=== PATIENT | female | born 1940 | race Caucasian/White ===

== ENCOUNTER 2019-04-12 21:03 | Inpatient (IN) | payer MEDICARE, OTHER ==
[~2019-04-12] VITALS: Ht 160 cm; Wt 63.0 kg
[2019-04-13] VITALS (81 sets, daily range): BP systolic 54–179; BP diastolic 17–89
--- NOTE | 2019-04-13 00:35 | NUR ---
RECEIVED PT ORALLY INTUBATED - 7.0 ETT SIZE APPROXIMATELY 23CM AT THE LIP. PLACED ON MOY VENT WITH SETTINGS REPORTED BY TRANSPORT RT - AC 16, VT 450, FIO2 80%. TOLERATED SETTINGS WELL. ORAL CARE DONE. HME CHANGED. SPUTUM SAMPLE DONE. SUCTIONED MODERATE AMOUNT OF THICK, GREEN SECRETIONS. AMBU BAG IS AT BEDSIDE. VENT ALARMS SET, ARE ON AND AUDIBLE. NO S/S OF RESPIRATORY DISTRESS NOTED. WILL CONTINUE TO MONITOR.
--- NOTE | 2019-04-13 01:00 | NUR ---
Received pt orally intubated, vent settings AC 16, TV 450, FIO2 80%. Pt eyes open spontaneously, withdraws to painful stimuli, unable to follow commands. Upper and lower extremities mild weakness. F/C in place. BM noted to be foul - smelling, green to yellow color and moderate amount. Full assessment/admission done. Skin check completed. No belongings listed. Pt turned and repositioned. Safety precautions initiated. Continue plan of care.
[2019-04-13] MEDS ORDERED: ACETAMINOPHEN 650 MG SUPP.RECT RC PRN (02:00)
[2019-04-13] MEDS ORDERED: MORPHINE SULFATE 2 MG/1 ML DISP.SYRIN IV ONE (02:00)
[2019-04-13] MEDS ORDERED: Z GUARD REMEDY PASTE 57 GM TUBE TOP PRN (02:15)
[2019-04-13] MEDS ORDERED: LORAZEPAM 2 MG/1 ML VIAL IV PRN (02:15)
[2019-04-13] MEDS ORDERED: IV NORMAL SALINE 500 ML IV ONE ×3 (03:00→08:45)
--- NOTE | 2019-04-13 03:00 | NUR ---
Paged EPIC education manager MD for low BP pressure of 79/55. ZAY AQUINO notified. See order history. Will continue plan of care. No acute distress noted.
[2019-04-13 05:14] LABS: BASOPHILS # (AUTO) 0.3 K/uL (0.0-8.0); BASOPHILS % (AUTO) 0.5 % (0.0-2.0); EOSINOPHILS # (AUTO) 0.4 K/uL (0.0-0.7); EOSINOPHILS % (AUTO) 0.7 % (0.0-7.0); HEMOGLOBIN 12.5 g/dL (10.9-14.3); LYMPHOCYTES # (AUTO) 1.6 K/uL (20.0-40.0); MEAN CORPUSCULAR HEMOGLOBIN 26.2 uug (24.7-32.8); MEAN CORPUSCULAR HGB CONC 31 g/dL (32.3-35.6); MEAN CORPUSCULAR VOLUME 83.7 fL (75.5-95.3); MONOCYTES % (AUTO) 3.9 % (0.0-11.0); NEUTROPHILS # (AUTO) 47.9 K/uL (1.8-8.9); NEUTROPHILS % (AUTO) 91.9 % (38.5-71.5); PLATELET COUNT (AUTO) 377 K/uL (179-408); RED BLOOD CELL COUNT(AUTO) 4.78 MIL/uL (3.63-4.92)
[2019-04-13 05:25] LABS: ALANINE AMINOTRANSFERASE 11 U/L (14-59); ALKALINE PHOSPHATASE 86 U/L (50-136); ASPARTATE AMINOTRANSFERASE 15 U/L (15-37); BILIRUBIN,TOTAL 0.7 mg/dL (0.2-1.0); CARBON DIOXIDE 17 mmol/L (21-32); CHLORIDE 107 mmol/L (98-107); CREATININE 1.8 mg/dL (0.6-1.3); GLUCOSE 114 mg/dL (74-106); PHOSPHOROUS 4.2 mg/dL (2.5-4.9); POTASSIUM 3.6 mmol/L (3.5-5.1); TOTAL PROTEIN, SERUM 4.4 g/dL (6.4-8.2); UREA NITROGEN, BLOOD 42 mg/dL (7-18)
[2019-04-13] MEDS ORDERED: NOREPINEPHRINE BITARTRATE 4 MG/4 ML VIAL IV ONE (05:27)
[2019-04-13 05:28] LABS: THYROID STIMULATING HORMONE 1.243 mIU/mL (0.358-3.740)
[2019-04-13 05:31] LABS: WHITE BLOOD COUNT (AUTO) 52.1 K/uL (3.8-11.8)
[2019-04-13] MEDS: NOREPINEPHRINE BITARTRATE 8 MG in IV DEXTROSE 5% 500 ML IV PRN (05:50)
[2019-04-13 06:14] LABS: BAND % (MANUAL) 3 % (0-10); LYMPHOCYTES % (MANUAL) 4 % (20-40); MONOCYTES % (MANUAL) 8 % (2-10); NEUTROPHILS % (MANUAL) 85 % (42-75)
--- NOTE | 2019-04-13 08:00 | NUR ---
PATIENT WAS SEEN BY DOCTOR JOSY. ORDERED BOLUS. SEE ORDERS FOR FURTHER MANAGEMENT.
[2019-04-13] MEDS ORDERED: PIPERACILLIN/TAZO 2.25 G in IV DEXTROSE 5% 50 ML IV SCH ×2 (08:15→12:00)
[2019-04-13] MEDS ORDERED: IV NS 1000 ML 1,000 ML IV PRN (08:45)
[2019-04-13] MEDS ORDERED: IV NS 1000 ML 1,000 ML IV ONE (09:00)
--- NOTE | 2019-04-13 09:00 | NUR ---
RT PT FIO2 WAS CHANGED TO 70% RN AWARE NO DISTRESS NOTED AT THIS TIME.
--- NOTE | 2019-04-13 09:01 | NUR ---
Clinical pharmacy note-Vancomycin dosing per pharmacy Subjective: To start Vancomycin dosing on this patient for Documented infection(no ER note/md note available for now). Patient is on Zosyn also. Objective: BUN 42 Scr 1.8 WBC 52.1 Temp 97.7 Ht 160.02cm Wt 62.96kg Assessment/Plan: Since renal function is unstable, will start dosing by level for now. Will give Vancomycin 1gram x1 today(scheduled at 1000) and draw random tomorrow am for further dosing. Will follow daily.
[2019-04-13] MEDS: IV D5/ 0.9% NACL 1,000 ML IV PRN (09:10)
[2019-04-13] MEDS: Z GUARD REMEDY PASTE 57 GM TUBE TOP SCH ×2 (09:12→20:22)
[2019-04-13] MEDS: PANTOPRAZOLE SODIUM 40 MG VIAL IV SCH (09:13)
[2019-04-13] MEDS ORDERED: VANCOMYCIN IV 1,000 MG in IV DEXTROSE 5% 250 ML IV ONE (10:00)
--- NOTE | 2019-04-13 10:09 | NUR ---
DOCTOR KING IN THE UNIT FOR NEW CONSULTATION.
[2019-04-13 10:26] LABS: CHOLESTEROL 76 mg/dL (<200); HDL CHOLESTEROL 12 mg/dL (40-60); TRIGLYCERIDES 122 MG/DL (30-150)
--- NOTE | 2019-04-13 10:44 | NUR ---
doctor dayne ordered consult for ID. informed SOCIAL SERVICE DIRECTOR to see patient. She is in the unit
--- NOTE | 2019-04-13 11:15 | NUR ---
RT PER MD ORDER PT PEEP +5 WAS ADDED TO PT VENT SETTINGS. MD AWARE OF PT B/P WILL CONTINUE TO MONITOR PT.
--- NOTE | 2019-04-13 11:16 | NUR ---
peep of 5 added per doctor shirley O2 to titrate to keep sats above 94% RT notified
[2019-04-13] MEDS: PROPOFOL 100 ML IV PRN (11:36)
[2019-04-13] MEDS ORDERED: CEFEPIME HCL 1 G in IV DEXTROSE 5% 50 ML IV SCH (12:45)
[2019-04-13] MEDS: VANCOMYCIN FOR PO/GT/NG USE GT SCH ×2 (13:01→18:10)
[2019-04-13] MEDS: CEFEPIME HCL 1 G in IV DEXTROSE 5% 50 ML IV SCH (13:02)
[2019-04-13] MEDS: HYDROCORTISONE SOD SUCCINATE 100 MG/2 ML VIAL IV SCH ×2 (13:03→18:09)
[2019-04-13] MEDS ORDERED: PHENYLEPHRINE IV 20 MG in IV DEXTROSE 5% 250 ML IV PRN (14:15)
--- NOTE | 2019-04-13 14:20 | NUR ---
DR. ZEPEDA ORDERED NEOSYNEPHRINE AND TITRATE OFF LEVOPHED DUE TO ELEVATED HEART RATE.
--- NOTE | 2019-04-13 14:49 | NUR ---
PATIENT IS POSITIVE FOR CDIFF
[2019-04-13] MEDS: METRONIDAZOLE 500 MG/NS 100ML 500 MG in PREMIXED 1 EACH IV SCH ×2 (14:57→21:48)
--- NOTE | 2019-04-13 15:14 | NUR ---
WOUND CARE CONSULT: PT PRESENTS WITH SACRAL SCAR, GENERALIZED EDEMA, LEFT ARM SKIN TEAR, DISCOLORATIONS AND DUSKY COLOR TO FEET AND HEELS, PRESENT ON ADMISSION. RECOMMENDATIONS MADE FOR SKIN PROTECTION AND WOUND CARE, DISCUSSED WITH NURSING STAFF. WILL SEE PRN. FALK IN AGREEMENT WITH PLAN OF CARE. PT ON FIRST STEP [facility]. Addendum: 04/13/19 at 1515 by JOSE WATTS RN Amended: Links added. Addendum: 04/13/19 at 1516 by JOSE WATTS RN PT HAS RECTAL TUBE IN PLACE. SOME REDNESS NOTED TO LOWER BUTTOCKS WITH RASH. RECOMMENDATIONS MADE FOR SKIN CARE. DISCUSSED WITH NURSING STAFF.
[2019-04-13] MEDS ORDERED: BISA10SU61 RC (16:38)
[2019-04-13] MEDS ORDERED: DOCU100C36 GT (16:38)
[2019-04-13] MEDS ORDERED: MULT-213 PO (16:38)
[2019-04-13] MEDS ORDERED: METO25TA6 PO (16:38)
[2019-04-13] MEDS ORDERED: ACET-2154 PO (16:38)
[2019-04-13] MEDS ORDERED: FERROUS SULFATE GT (16:38)
[2019-04-13] MEDS ORDERED: ZINC1CAP2 GT (16:40)
[2019-04-13] MEDS ORDERED: NA P133E RC (16:40)
[2019-04-13] MEDS ORDERED: MAGN400O6 GT (16:41)
[2019-04-13] MEDS ORDERED: LACT-96 GT (16:44)
[2019-04-13] MEDS: CLOTRIMAZOLE 1% CREAM 30 GM TUBE TOP SCH (18:09)
--- NOTE | 2019-04-13 18:09 | NUR ---
RT PT REMAINS ON VENT NO CHANGES NO WEANING ORDERS AT THIS TIME. PT VENT SETTINGS ARE AC 16 VT450 PEEP+5 FIO2 70% PT TOLERATED VENT WELL ALARMS ON AND AUDIBLE WILL CONTINUE TO MONITOR PT.
[2019-04-13] MEDS: PHENYLEPHRINE IV 40 MG in IV DEXTROSE 5% 250 ML IV PRN ×2 (18:24→21:52)
--- NOTE | 2019-04-13 20:15 | NUR ---
round made patient in bed ,orally intubated , tolerated vent setting saturation 95% rr 20, suction patient via mouth with thin to thick secretions oral care done,hob up ,turned and reposition patient . continue to monitor bp and continue with norsynephrine drip to keep sbp >90 mm/hg v/s done q15 minutes .flexiseal in placed with liquid greenish stool , f/c to bsd with yellowish urine cloudy and with sediments .contact isolation precaution observed .
--- NOTE | 2019-04-13 22:00 | NUR ---
turned and reposition patient elevated upper and lower extremities with pillows .suctiion via ett and via mouth .hob up . npo peg clamp only for medication .
--- NOTE | 2019-04-13 23:30 | NUR ---
turned and reposition patient / continue to monitor v/s q15 and continue to monitor levels of sedation . open eyes spontaneously but doesn't not follow commands increase propofol c/o tachypneic with continue to monitor rr and bp .
--- NOTE | 2019-04-13 23:30 | NUR ---
collected urine for osmolality and random sodium etc.
[2019-04-14] VITALS (93 sets, daily range): BP systolic 0–117; BP diastolic 0–81
--- NOTE | 2019-04-14 | NUR ---
continue to monitor i and os urine remains low as per day RN ,MD: domingo aware and renal already consulted .
[2019-04-14 00:04] LABS: *BILIRUBIN,URIN 1+ (NEGATIVE); *BLOOD, URINE 3+ (NEGATIVE); *CLARITY,URINE TURBID (CLEAR); *COLOR,URINE AMBER (YELLOW); *KETONES,URINE TRACE (NEGATIVE); *UROBILINOGEN,URINE 0.2 E.U./dl (NORMAL); LEUKOCYTE ESTERASE ,URINE 1+ (NEGATIVE); NITRITE, URINE NEGATIVE (NEGATIVE); UGLUCOSE NEGATIVE (NEGATIVE)
[2019-04-14] MEDS: HYDROCORTISONE SOD SUCCINATE 100 MG/2 ML VIAL IV SCH ×5 (00:07→23:44)
[2019-04-14] MEDS: VANCOMYCIN FOR PO/GT/NG USE GT SCH ×5 (00:07→23:44)
[2019-04-14 00:47] LABS: *CREATININE,URINE 111.6 mg/dL (30-125); BACTERIA,URINE NONE SEEN /HPF (NONE SEEN); RBC,URINE 20-50 /HPF (0-3); SQUAMOUS EPITHELIAL CELL,UR MODERATE /HPF (NONE SEEN)
[2019-04-14 00:48] LABS: RED BLOOD CELL CASTS,URINE 0-3 /LPF (NONE SEEN); URIC ACID CRYSTALS,URINE MODERATE /HPF (NONE SEEN); URINE AMORPHOUS URATE MANY /HPF; WAXY CASTS,URINE 0-3 /LPF (NONE SEEN)
--- NOTE | 2019-04-14 01:10 | NUR ---
given prn morphine patient is tachypneic RR 35 breathing over the vent setting on ac 16,facial grimace noted upon touching and repositioning continue to increase neosynephrine to keep sbp >90 mm/hg,.
--- NOTE | 2019-04-14 01:15 | NUR ---
given morphine patient tachypneic rr 30 and continue to monitor s/s/ pain and vent settings , will titrate neosynephrine drip ifs needed .
[2019-04-14] MEDS: PHENYLEPHRINE IV 40 MG in IV DEXTROSE 5% 250 ML IV PRN ×3 (01:18→08:20)
[2019-04-14] MEDS: MORPHINE SULFATE 2 MG/1 ML DISP.SYRIN IV PRN ×3 (01:22→19:45)
[2019-04-14] MEDS: PROPOFOL 100 ML IV PRN (01:36)
[2019-04-14] MEDS: IV D5/ 0.9% NACL 1,000 ML IV PRN ×2 (01:37→15:02)
[2019-04-14 05:42] LABS: BASOPHILS # (AUTO) 0.2 K/uL (0.0-8.0); EOSINOPHILS # (AUTO) 0.1 K/uL (0.0-0.7); EOSINOPHILS % (AUTO) 0.1 % (0.0-7.0); NEUTROPHILS % (AUTO) 96.3 % (38.5-71.5)
--- NOTE | 2019-04-14 05:45 | NUR ---
PT ON CONT MOY VENT WITH 7.0 ET/TUBE IN PLACE AND SECURED WITH ANCHOR FAST, ROTATE, ORAL CARE DONE, SUCTIONED PALE YELL TINGE SECRETIONS, CHECK CUFF, CHANGE HME; ALL VENT ALARMS GOOD, NO VENT CHANGES MADE, PT WITH SAME CURRENT VENT SETTINGS, PT DOES BREATH RAPID AT TIMES, NO VERY RESPONSIVE, AMBU BAG AT BEDSIDE.Shona CRAWFORDP Addendum: 04/14/19 at 0548 by NEVA MICHAEL RT Amended: Links added.
[2019-04-14 05:48] LABS: BASOPHILS % (AUTO) 0.2 % (0.0-2.0); HEMOGLOBIN 13.7 g/dL (10.9-14.3); LYMPHOCYTES # (AUTO) 1.5 K/uL (20.0-40.0); LYMPHOCYTES % (AUTO) 1.8 % (20.5-51.5); MEAN CORPUSCULAR HEMOGLOBIN 25.9 uug (24.7-32.8); MEAN CORPUSCULAR HGB CONC 31 g/dL (32.3-35.6); MEAN CORPUSCULAR VOLUME 83.5 fL (75.5-95.3); MONOCYTES # (AUTO) 1.3 K/uL (2.0-10.0); MONOCYTES % (AUTO) 1.6 % (0.0-11.0); NEUTROPHILS # (AUTO) 79.9 K/uL (1.8-8.9); PLATELET COUNT (AUTO) 393 K/uL (179-408); RED BLOOD CELL COUNT(AUTO) 5.27 MIL/uL (3.63-4.92)
[2019-04-14 05:51] LABS: ALANINE AMINOTRANSFERASE 15 U/L (14-59); ALKALINE PHOSPHATASE 102 U/L (50-136); ASPARTATE AMINOTRANSFERASE 40 U/L (15-37); BILIRUBIN,TOTAL 0.4 mg/dL (0.2-1.0); CARBON DIOXIDE 14 mmol/L (21-32); CHLORIDE 104 mmol/L (98-107); CREATINE KINASE, TOTAL 115 U/L (26-192); CREATININE 2.6 mg/dL (0.6-1.3); GLUCOSE 202 mg/dL (74-106); PHOSPHOROUS 5.3 mg/dL (2.5-4.9); TOTAL PROTEIN, SERUM 4.5 g/dL (6.4-8.2); UREA NITROGEN, BLOOD 49 mg/dL (7-18); VANCOMYCIN,RANDOM 24.9 ug/mL (18.0-26.0)
[2019-04-14] MEDS: METRONIDAZOLE 500 MG/NS 100ML 500 MG in PREMIXED 1 EACH IV SCH ×3 (06:02→21:30)
[2019-04-14 07:18] LABS: BAND % (MANUAL) 14 % (0-10); LYMPHOCYTES % (MANUAL) 7 % (20-40); MONOCYTES % (MANUAL) 5 % (2-10); NEUTROPHILS % (MANUAL) 74 % (42-75)
--- NOTE | 2019-04-14 07:30 | NUR ---
doctor marco in the unit to round on patient.
[2019-04-14] MEDS: PANTOPRAZOLE SODIUM 40 MG VIAL IV SCH (09:21)
[2019-04-14] MEDS: Z GUARD REMEDY PASTE 57 GM TUBE TOP SCH ×2 (09:22→20:21)
[2019-04-14] MEDS: CLOTRIMAZOLE 1% CREAM 30 GM TUBE TOP SCH ×2 (09:22→17:21)
--- NOTE | 2019-04-14 09:46 | NUR ---
Malena COLLAZO in the unit to see patient.
--- NOTE | 2019-04-14 09:47 | NUR ---
lactic acid reported 5.2 trending as expected.
[2019-04-14] MEDS ORDERED: PHENYLEPHRINE IV 80 MG in IV DEXTROSE 5% 250 ML IV PRN (12:15)
[2019-04-14 12:27] LABS: ABG BASE EXCESS -7.4 mmol/L; ABG HCO3 14.4 mmol/L; ABG PCO2 21.8 mmHg (35.0-45.0); ABG PH 7.439 (7.350-7.450); ABG SITE LEFT RADIAL; ABG TOTAL HEMOGLOBIN 14.4 G/dL (12.0-16.0); COHb 1.5 % (0.5-1.5); MetHb 0.4 % (0.0-1.5); O2Hb 96.1 % (94.0-97.0); VENT MODE VENT - A/C; VT, ABG 450 mL
[2019-04-14 12:31] LABS: ABG BASE EXCESS -12.8 mmol/L; ABG HCO3 10.1 mmol/L; ABG PCO2 18.5 mmHg (35.0-45.0); ABG PH 7.353 (7.350-7.450); ABG PO2 67.3 mmHg (75.0-100.0); ABG SITE LEFT RADIAL; ABG TOTAL HEMOGLOBIN 14.5 G/dL (12.0-16.0); COHb 1.4 % (0.5-1.5); MetHb 0.3 % (0.0-1.5); O2Hb 92.1 % (94.0-97.0); VENT MODE VENT - A/C; VT, ABG 450 mL
[2019-04-14] MEDS: PHENYLEPHRINE IV 80 MG in IV DEXTROSE 5% 250 ML IV PRN ×2 (12:51→21:33)
--- NOTE | 2019-04-14 13:40 | NUR ---
Clinical pharmacy note-Vancomycin dosing per pharmacy Subjective: To continue Vancomycin dosing on this patient for Documented infection(ID note:severe sepsis, possible PNA/UTI). Patient is on Zosyn also. Objective: BUN 49 Scr 2.6 WBC 83 Temp 98.6 Ht 160.02cm Wt 62.96kg Vancomycin random today am:24.9 Assessment/Plan: Since renal function is unstable, will continue dosing by level for now. No dose shall be given today(level 24.9). Ordered another random tomorrow am for further dosing. Will follow the level.
[2019-04-14] MEDS: CEFEPIME HCL 1 G in IV DEXTROSE 5% 50 ML IV SCH (13:49)
[2019-04-14] MEDS: NOREPINEPHRINE BITARTRATE 8 MG in IV DEXTROSE 5% 500 ML IV PRN ×2 (16:15→22:42)
--- NOTE | 2019-04-14 16:15 | NUR ---
SEBASTIEN BUSINESS DEVELOPMENT MANAGER INFORMED ME THAT A MESSAGE WAS LEFT WITH RESIDENTIAL FOR RECORDS AND POLST OF PATIENT. MEDICAL RECORDS IS CLOSED TO OBTAIN RECORDS. AND A MESSAGE WAS LEFT TO CONSERVATOR TO INFORM OF PATIENT STATUS. AWAITING FURTHER INFORMATION
--- NOTE | 2019-04-14 16:30 | NUR ---
DOCTOR NINFA IN THE UNIT TO SEE PATIENT. ORDERED PATIENT TO GO BACK ON LEVOPHED AND TAKE OFF NEOSYNEPHRINE.
--- NOTE | 2019-04-14 16:51 | NUR ---
PATIENT IS DESATING AT THIS TIME 88-90%. AND PLACED ON 100% FIO2. PATIENT CONTINUES TO DESATURATE. BREATHING LABORED STAT ABG OBTAINED.
--- NOTE | 2019-04-14 18:02 | NUR ---
DOCTOR KACEY CALLED BACK ON-CALL FOR DOCTOR DILLAN. INFORMED HIM OF ABG VALUES RECEIVED NO NEW ORDERS.
[2019-04-14] MEDS ORDERED: MORPHINE SULFATE 2 MG/1 ML DISP.SYRIN IV PRN (20:15)
[2019-04-14] MEDS ORDERED: DOPamine IV DRIP 400 MG/250ML 250 ML IV SCH (21:01)
[2019-04-14] MEDS ORDERED: PHENYLEPHRINE 10 MG/1 ML VIAL ONE ×2 (21:18→21:27)
--- NOTE | 2019-04-14 21:27 | NUR ---
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
--- NOTE | 2019-04-14 21:35 | NUR ---
Dr Angel aware max'd on 3 vasopressors. No B/P. No new orders.
[2019-04-14] MEDS: DOPamine IV DRIP 400 MG/250ML 250 ML IV SCH (23:35)
--- NOTE | 2019-04-14 23:59 | NUR ---
PT ON CONT MOY VENT WITH 7.0 ET/TUBE IN PLACE , WITH SAME CURRENT VENT SETTINGS, PT DOES ASSIST AT TIMES, LOEW BP, HARD TO GET READING ON SAT , SUCTIONED LIGHT PALE YELL TINGE SECRETIONS, AGINAL BREATHING, PT ON FO2 100%, AMBU BAG AT BEDSIDE.Shona MICHAEL [employer]ILRO[employer] BAGG[employer]TER Addendum: 04/15/19 at 0001 by NEVA MICHAEL RT Amended: Links added.
[2019-04-15] VITALS (30 sets, daily range): BP systolic 0–52; BP diastolic 0–32
[2019-04-15] MEDS ORDERED: NOREPINEPHRINE BITARTRATE 4 MG/4 ML VIAL IV ONE ×2 (01:57→05:21)
[2019-04-15] MEDS: NOREPINEPHRINE BITARTRATE 8 MG in IV DEXTROSE 5% 500 ML IV PRN (02:03)
[2019-04-15] MEDS ORDERED: PHENYLEPHRINE 10 MG/1 ML VIAL ONE (02:30)
[2019-04-15] MEDS: PHENYLEPHRINE IV 80 MG in IV DEXTROSE 5% 250 ML IV PRN ×3 (02:35→11:19)
[2019-04-15] MEDS ORDERED: DOPamine IV DRIP 400 MG/250ML 250 ML ONE (02:56)
[2019-04-15] MEDS: DOPamine IV DRIP 400 MG/250ML 250 ML IV SCH (03:11)
[2019-04-15] MEDS: IV D5/ 0.9% NACL 1,000 ML IV PRN (05:29)
[2019-04-15 05:33] LABS: BASOPHILS # (AUTO) 0.5 K/uL (0.0-8.0); BASOPHILS % (AUTO) 0.4 % (0.0-2.0); EOSINOPHILS # (AUTO) 0.4 K/uL (0.0-0.7); EOSINOPHILS % (AUTO) 0.3 % (0.0-7.0); MEAN CORPUSCULAR VOLUME 89.7 fL (75.5-95.3); MONOCYTES % (AUTO) 0.3 % (0.0-11.0)
[2019-04-15 05:38] LABS: HEMATOCRIT 45.3 % (31.2-41.9); LYMPHOCYTES # (AUTO) 2.1 K/uL (20.0-40.0); LYMPHOCYTES % (AUTO) 1.6 % (20.5-51.5); MEAN CORPUSCULAR HEMOGLOBIN 25.6 uug (24.7-32.8); MEAN CORPUSCULAR HGB CONC 29 g/dL (32.3-35.6); MONOCYTES # (AUTO) 0.4 K/uL (2.0-10.0); NEUTROPHILS # (AUTO) 126.9 K/uL (1.8-8.9); NEUTROPHILS % (AUTO) 97.4 % (38.5-71.5); PLATELET COUNT (AUTO) 180 K/uL (179-408); RED BLOOD CELL COUNT(AUTO) 5.05 MIL/uL (3.63-4.92)
[2019-04-15 05:43] LABS: ALANINE AMINOTRANSFERASE 21 U/L (14-59); ALKALINE PHOSPHATASE 133 U/L (50-136); ASPARTATE AMINOTRANSFERASE 41 U/L (15-37); BILIRUBIN,TOTAL 0.6 mg/dL (0.2-1.0); CARBON DIOXIDE 11 mmol/L (21-32); CHLORIDE 95 mmol/L (98-107); CREATININE 2.9 mg/dL (0.6-1.3); MAGNESIUM 1.9 mg/dL (1.8-2.4); PHOSPHOROUS 7.5 mg/dL (2.5-4.9); POTASSIUM 4.3 mmol/L (3.5-5.1); TOTAL PROTEIN, SERUM 4.2 g/dL (6.4-8.2); UREA NITROGEN, BLOOD 48 mg/dL (7-18); VANCOMYCIN,RANDOM 15.4 ug/mL (18.0-26.0)
[2019-04-15] MEDS: HYDROCORTISONE SOD SUCCINATE 100 MG/2 ML VIAL IV SCH ×2 (05:43→11:53)
[2019-04-15] MEDS: VANCOMYCIN FOR PO/GT/NG USE GT SCH ×2 (05:43→11:54)
[2019-04-15] MEDS: METRONIDAZOLE 500 MG/NS 100ML 500 MG in PREMIXED 1 EACH IV SCH ×2 (05:43→14:07)
[2019-04-15] MEDS: NOREPINEPHRINE BITARTRATE 16 MG in IV DEXTROSE 5% 500 ML IV PRN ×2 (05:50→07:06)
[2019-04-15 05:56] LABS: GLUCOSE 453 mg/dL (74-106)
[2019-04-15 05:57] LABS: WHITE BLOOD COUNT (AUTO) 130.3 K/uL (3.8-11.8)
--- NOTE | 2019-04-15 06:05 | NUR ---
dr andres was called in and to notify of recent critical lab values , waiting for call back
[2019-04-15 06:27] LABS: BAND % (MANUAL) 32 % (0-10); LYMPHOCYTES % (MANUAL) 2 % (20-40); MONOCYTES % (MANUAL) 1 % (2-10); NEUTROPHILS % (MANUAL) 43 % (42-75)
[2019-04-15 06:28] LABS: METAMYELOCYTES % 13 % (0-1); MYELOCYTES % 9 % (0-0)
[2019-04-15] MEDS ORDERED: INSULIN REGULAR, HUMAN 300 UNIT/3 ML VIAL SQ ONE (06:30)
[2019-04-15] MEDS ORDERED: DOPamine IV DRIP 400 MG/250ML 250 ML IV PRN (06:35)
[2019-04-15] MEDS ORDERED: VANCOMYCIN IV 1,000 MG in IV DEXTROSE 5% 250 ML IV ONE (07:00)
--- NOTE | 2019-04-15 07:30 | NUR ---
Bedside report received from Nahomy [place] as reported SBP reading unable to be obtained since last night at apr 14, 2029. and Attending Selvin Morales aware.
--- NOTE | 2019-04-15 08:00 | NUR ---
Pulmonary services, Dr. Renee in the unit to see and examine patient, full report given, orders to continue care and morphine administration as ordered. Addendum: 04/15/19 at 0911 by MIREYA ECKERT RN informed that no SBP reading obtained since Apr 14 at 2030. also informed that attending is aware.
[2019-04-15] MEDS: Z GUARD REMEDY PASTE 57 GM TUBE TOP SCH (08:18)
[2019-04-15] MEDS: PANTOPRAZOLE SODIUM 40 MG VIAL IV SCH (08:23)
[2019-04-15] MEDS: CLOTRIMAZOLE 1% CREAM 30 GM TUBE TOP SCH (08:48)
--- NOTE | 2019-04-15 09:58 | NUR ---
Clinical pharmacy note-Vancomycin dosing per pharmacy Subjective: To continue Vancomycin dosing on this patient for Documented infection(ID note:severe sepsis, possible PNA/UTI). Objective: BUN 48 Scr 2.9 WBC 130.3 Temp 98.2 Ht 160.02cm Wt 62.96kg Vancomycin random on 04/14 with am labs:24.9 Vancomycin random on 04/15 with am labs:15.4 Assessment/Plan: Since renal function is unstable, will continue dosing by level for now. Since vanco random this am is 15.4 mcg/ml, will give vanco 1gm IVPB x1 today at 0800. Pharmacy shall review the renal function in am & decide when to order next random level for further dosing. Will follow the level.
[2019-04-15] MEDS: DOPamine IV DRIP 400 MG/250ML 250 ML IV PRN ×2 (10:11→13:30)
[2019-04-15] MEDS: CEFEPIME HCL 1 G in IV DEXTROSE 5% 50 ML IV SCH (12:04)
--- NOTE | 2019-04-15 12:36 | NUR ---
Cardiology services, Dr. Chapa in the unit to see and examine patient, full report given orders to continue with care plan received.
--- NOTE | 2019-04-15 15:15 | NUR ---
Patient apneic for 5 minutes, pupils fixed and dilated. No audible heart tones, No breath sounds for 1 minute. No palpable pulses for 1 minute, no corneal reflexes. Patient pronounced at 1515. Attending physician Guilherme Morales. notified.
--- NOTE | 2019-04-15 15:35 | NUR ---
Patient went robert on ventilator at 1510 on/off bradycardia unable to obtain SBP since 04/14/2019 at 2030. and at 1515 patient went asystole.
--- NOTE | 2019-04-15 15:39 | NUR ---
[employer] notified, and spoke with Yoon. [employer] release the body to the proper arrangements stating patient is excluded of any potential organ donation due to severe sepsis. Case # [id number].
--- NOTE | 2019-04-15 16:45 | NUR ---
Post-mortem care provided, a toe tag, bag tag with pt's proper identification. body will be spanish moss picker and taken to the morgue.
--- NOTE | 2019-04-15 16:51 | NUR ---
At this time Danielle Tang called at to be notified of pt's expiration time, message left with unit number and case management number.
--- NOTE | 2019-04-15 17:05 | NUR ---
At this time pt's body bean picker by security guards [address] pt's body to transporting gurney, this guard later on was joined at the door by another cyber security systems engineer and pt's body taken down.
[2019-04-16 00:09] LABS: ABG BASE EXCESS -15.2 mmol/L; ABG HCO3 8.4 mmol/L; ABG PCO2 17.4 mmHg (35.0-45.0); ABG PH 7.302 (7.350-7.450); ABG SITE RIGHT RADIAL; ABG TOTAL HEMOGLOBIN 14.8 G/dL (12.0-16.0); COHb 1.4 % (0.5-1.5); MetHb 0.2 % (0.0-1.5); O2Hb 93.3 % (94.0-97.0); VENT MODE VENT - A/C; VT, ABG 450 mL
== END 2019-04-15 17:00 | disposition expired | DRG 871 ==
LOC: CCU 04-13 01:07
PROVIDERS: ADMIT Internal Medicine; ATTEND Internal Medicine
PROC: 5A1945Z Respiratory Ventilation, 24-96 Consecutive Hours (ICD-10-PCS; principal; 2019-04-13)
DX: A41.9 Sepsis, unspecified organism (principal); J69.0 Pneumonitis due to inhalation of food and vomit; R65.21 Severe sepsis with septic shock; J96.01 Acute respiratory failure with hypoxia; N17.0 Acute kidney failure with tubular necrosis; I50.33 Acute on chronic diastolic (congestive) heart failure; E43 Unspecified severe protein-calorie malnutrition; D68.59 Other primary thrombophilia; A04.72 Enterocolitis due to Clostridium difficile, not specified as recurrent; E87.2 Acidosis; B49 Unspecified mycosis; G93.40 Encephalopathy, unspecified; N39.0 Urinary tract infection, site not specified; E27.40 Unspecified adrenocortical insufficiency; Z66 Do not resuscitate; I11.0 Hypertensive heart disease with heart failure; Z74.09 Other reduced mobility; Z96.642 Presence of left artificial hip joint; Z93.1 Gastrostomy status; R13.10 Dysphagia, unspecified; M81.0 Age-related osteoporosis without current pathological fracture; G30.9 Alzheimer's disease, unspecified; F02.80 Dementia in other diseases classified elsewhere, unspecified severity, without behavioral disturbance, psychotic disturbance, mood disturbance, and anxiety; D50.9 Iron deficiency anemia, unspecified; S82.201D Unspecified fracture of shaft of right tibia, subsequent encounter for closed fracture with routine healing; S82.401D Unspecified fracture of shaft of right fibula, subsequent encounter for closed fracture with routine healing; X58.XXXD Exposure to other specified factors, subsequent encounter; Z91.81 History of falling; F01.50 Vascular dementia, unspecified severity, without behavioral disturbance, psychotic disturbance, mood disturbance, and anxiety; I69.311 Memory deficit following cerebral infarction; F32.9 Major depressive disorder, single episode, unspecified; E86.1 Hypovolemia; D72.823 Leukemoid reaction; Z87.01 Personal history of pneumonia (recurrent)
CPT/HCPCS: 36415; 36600; 70030-TC; 71045; 82533; 83605; 83735; 84100; 84156; 84300; 84443; 85025; 87070; 87077; 87086; 93307; 94002; 94003; A4217; A4663; C9113; G0378; J0692; J1265; J1720; J1815; J2270; J2370; J2543; J3370; J3490; J7030; J7040; J7042; J7050; J7060